=== PATIENT | female | born 1965 ===

== ENCOUNTER → 2020-03-19 | Outpatient (CLI) | payer OTHER ==
[~2020-03-19] MED LIST: GADOTERATE 7.5 MMOL/15ML VIAL. IVP ONE
--- NOTE | 2020-03-19 15:28 | RAD ---
MRI BRAIN WO+W Date: 03/19/2020 11:10 AM Indication: Reason: VERTIGO, PITUITARY MASS 15mL CLARISCAN / Spl. Instructions: / History: Comparison: 06/01/2014. Technique: Multiplanar multisequence MRI of the brain was performed with and without intravenous cont rast using the standard protocol. 15 cc Clariscan contrast was administered intravenously during the exam. Findings: Round circumscribed nonenhancing mass within the central/right aspect of the sella measuring 1.5 x 1. 0 x 0.9 cm (TV by AP by CC). Mass is slightly T1/T2 hyperintense relative to normal parenchyma, and d emonstrates flair hyperintensity. Right aspect of the mass abuts the cavernous sinus, without definit e invasion. Mass does not contact the optic chiasm or optic nerves. Infundibulum is displaced posteri joel and to the left, with normal pituitary tissue is flattened along the floor of the sella. No acute infarct. No acute or chronic hemorrhage. The ventricles are normal in size and configuration without hydrocephalus. The scalp and calvarium are normal. No Chiari malformation. The visualized upper cervical spine is no rmal. The visualized orbits and globes are normal. The visualized paranasal sinuses are clear. The mastoid air cells are clear. Normal flow voids within the vertebral, basilar, and internal carotid arteries indicating patency. 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 Mass does not contact the optic nerves. Electronically signed by: Vitaliy Logan MD (03/19/2020 3:26 PM) [id number]
== END ==
LOC: MRI 10:59
PROVIDERS: ATTEND Family Medicine
DX: E23.6 Other disorders of pituitary gland (principal); R42 Dizziness and giddiness
CPT/HCPCS: 70553; A9575